=== PATIENT | male | born 2000 | race African-American/Black ===

== ENCOUNTER 2018-11-01 05:00 | Inpatient (IN) | payer OTHER ==
[~2018-11-01] VITALS: Ht 175.3 cm; Wt 117.9 kg
[~2018-11-01 05:00] MED LIST: SULF1TAB24 PO
--- NOTE | 2018-11-01 05:16 | PHYS DOC ---
Past Medical History Past Medical History: No Pertinent History (CHASITY NIEVES DO) Past Surgical History: No Surgical History (CHASITY NIEVES DO) Alcohol Use: Occasionally Drug Use: None (CHASITY NIEVES DO) Adult General Chief Complaint Chief Complaint: ALLERGIC REACTION HPI HPI Patient is a 18 year old male who presents with facial swelling. This started this morning. Patient has taken no home medicines. Patient is unable to identify any triggers to include new foods, fish, or recent shellfish gesturing. No new soaps, lotions, detergents, or skin creams. Patient has been having cough and has been taking [id number] cough medicine along with ibuprofen. He is also been having some hemoptysis, a small amount, over the last 3-4 nights with dried blood noted on the collar of his shirt as well as in his mouth. Patient denies any nosebleed.[] (CHASITY NIEVES DO) Review of Systems Review of Systems Constitutional: Denies fever or chills [] Eyes: Denies change in visual acuity, redness, or eye pain [] HENT: Denies nasal congestion or sore throat [] Respiratory: See history of present illness[] Cardiovascular: No chest pain or palpitations[] GI: Denies abdominal pain, nausea, vomiting, bloody stools or diarrhea [] : Denies dysuria or hematuria [] Musculoskeletal: Denies back pain or joint pain [] Integument: Denies rash or skin lesions [] Neurologic: Denies headache, focal weakness or sensory changes [] Endocrine: Denies polyuria or polydipsia [] All other systems were reviewed and found to be within normal limits, except as documented in this note. (CHASITY NIEVES DO) Current Medications Current Medications Current Medications Medications (Trade) Dose Ordered Sig/Srinivas Start Time Stop Time Status Last Admin Dose Admin Diphenhydramine HCl (Benadryl) 50 mg STK-MED ONCE 11/01/18 05:19 11/01/18 05:20 DC Famotidine (Pepcid Vial) 20 mg STK-MED ONCE 11/01/18 05:19 11/01/18 05:20 DC Methylprednisolone Sodium Succinate (SOLU-Medrol 125MG VIAL) 125 mg STK-MED ONCE 11/01/18 05:19 11/01/18 05:20 DC Sodium Chloride 1,000 ml @ 1,000 mls/hr 1X ONCE 11/01/18 05:30 11/01/18 06:30 DC 11/01/18 05:53 1,000 MLS/HR (NATALIA RILEY MD) Allergies Allergies Allergies Coded Allergies Type Severity Reaction Last Updated Verified No Known Drug Allergies 07/10/14 No (NATALIA RILEY MD) Physical Exam Physical Exam Constitutional: Well developed, well nourished, mild discomfort, non-toxic appearance. [] HENT: Normocephalic, atraumatic, bilateral external ears normal, oropharynx moist, no oral exudates, patient is mallampati, no tongue swelling, nose normal. [] Eyes: PERRLA, EOMI, conjunctiva normal, no discharge. [] Neck: Normal range of motion, no tenderness, supple, no stridor. [] Cardiovascular:Heart rate regular rhythm, no murmur [] Lungs & Thorax: Bilateral breath sounds clear to auscultation [] Abdomen: Bowel sounds normal, soft, no tenderness, no masses, no pulsatile masses. [] Skin: Warm, dry, no erythema, no rash. There is swelling around the face. [] Back: No tenderness, no CVA tenderness. [] Extremities: No tenderness, no cyanosis, no clubbing, ROM intact, no edema. [] Neurologic: Alert and oriented X 3, normal motor function, normal sensory function, no focal deficits noted. [] Psychologic: Affect normal, judgement normal, mood normal. [] (MARIABERG,CHASITY DO) Current Patient Data Vital Signs Vital Signs Date Time Temp Pulse Resp B/P (MAP) Pulse Ox O2 Delivery O2 Flow Rate FiO2 11/01/18 06:35 95 21 125/58 (80) 98 Room Air 11/01/18 05:15 99.4 99.4 (NATALIA RILEY MD) Lab Values Laboratory Tests Test 11/01/18 05:48 11/01/18 06:40 White Blood Count 4.5 x10^3/uL (4.0-11.0) 4.2 x10^3/uL (4.0-11.0) Red Blood Count 6.21 x10^6/uL (4.30-5.70) H 5.86 x10^6/uL (4.30-5.70) H Hemoglobin 16.3 g/dL (13.0-17.5) 15.1 g/dL (13.0-17.5) Hematocrit 48.4 % (39.0-53.0) 45.8 % (39.0-53.0) Mean Corpuscular Volume 78 fL (79-100) L 78 fL (79-100) L Mean Corpuscular Hemoglobin 26 pg (25-35) 26 pg (25-35) Mean Corpuscular Hemoglobin Concent 34 g/dL (31-37) 33 g/dL (31-37) Red Cell Distribution Width 12.9 % (11.5-14.5) 12.9 % (11.5-14.5) Platelet Count 7 x10^3/uL (140-400) *L 5 x10^3/uL (140-400) *L Neutrophils (%) (Auto) 35 % (31-73) 47 % (31-73) Lymphocytes (%) (Auto) 38 % (24-48) 28 % (24-48) Monocytes (%) (Auto) 24 % (0-9) H 22 % (0-9) H Eosinophils (%) (Auto) 3 % (0-3) 2 % (0-3) Basophils (%) (Auto) 0 % (0-3) 0 % (0-3) Neutrophils # (Auto) 1.6 x10^3uL (1.8-7.7) L 2.0 x10^3uL (1.8-7.7) Lymphocytes # (Auto) 1.7 x10^3/uL (1.0-4.8) 1.2 x10^3/uL (1.0-4.8) Monocytes # (Auto) 1.1 x10^3/uL (0.0-1.1) 0.9 x10^3/uL (0.0-1.1) Eosinophils # (Auto) 0.1 x10^3/uL (0.0-0.7) 0.1 x10^3/uL (0.0-0.7) Basophils # (Auto) 0.0 x10^3/uL (0.0-0.2) 0.0 x10^3/uL (0.0-0.2) Segmented Neutrophils % 30 % (35-66) L Band Neutrophils % 4 % (0-9) Lymphocytes % 41 % (24-48) Atypical Lymphocytes % (Manual) 4 % (0-0) H Monocytes % 21 % (0-10) H Nucleated Red Blood Cells 1 Platelet Estimate Decreased (ADEQUATE) Large Platelets Occ Prothrombin Time 16.4 SEC (11.7-14.0) H Prothrombin Time INR 1.4 (0.8-1.1) H Sodium Level 141 mmol/L (136-145) Potassium Level 3.8 mmol/L (3.5-5.1) Chloride Level 100 mmol/L (98-107) Carbon Dioxide Level 27 mmol/L (21-32) Anion Gap 14 (6-14) Blood Urea Nitrogen 7 mg/dL (8-26) L Creatinine 1.1 mg/dL (0.7-1.3) Estimated GFR (Cockcroft-Gault) 103.3 BUN/Creatinine Ratio 6 (6-20) Glucose Level 117 mg/dL (70-99) H Calcium Level 8.6 mg/dL (8.5-10.1) Total Bilirubin 0.6 mg/dL (0.2-1.0) Aspartate Amino Transferase (AST) 18 U/L (15-37) Alanine Aminotransferase (ALT) 27 U/L (16-63) Alkaline Phosphatase 75 U/L (46-116) Total Protein 7.2 g/dL (6.4-8.2) Albumin 3.4 g/dL (3.4-5.0) Albumin/Globulin Ratio 0.9 (1.0-1.7) L Laboratory Tests 11/01/18 05:48 11/01/18 06:40 Laboratory Tests 11/01/18 05:48 (NATALIA RILEY MD) EKG EKG [] [facility] Radiology/Procedures Radiology/Procedures [] ([facility]) Radiology/Procedures ER physician preliminary chest x-ray interpretation: No acute disease. (NATALIA RILEY MD) Course & Med Decision Making Course & Med Decision Making Pertinent Labs and Imaging studies reviewed. (See chart for details) ED course: Patient arrived, was placed in bed, in tolerated exam well. Patient care endorsed to the daytime physician, Dr Riley, at 6 AM with laboratory testing, imaging, and affect of anti-allergy medicine pending.[] (CHASITY NIEVES DO) Course & Med Decision Making 7:40 AM: Patient care was assumed at shift change. Patient presented with facial and upper extremity swelling, in the setting of cold-like symptoms, with some hemoptysis. He states he has not had any danyell hemoptysis, but when he has woken up, he has had some dried blood in his mouth. He denies shortness of breath. He does report a history of easy bruising, and bleeding with brushing his teeth, but this has been going on for quite a while. Platelet count is noted to be very low. Repeat lab, to confirm, shows similar results. I discussed case with the hospitalist will admit the patient for further evaluation and treatment. 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 (CHASITY NIEVES DO) Departure Departure Impression: Primary Impression: Facial swelling Additional Impression: Thrombocytopenia Disposition: ADMITTED INPATIENT Admitting Physician: Dianne Hernandez (NATALIA RILEY MD) Condition: STABLE Referrals: MALU HENSON MD (PCP) Problem Qualifiers CHASITY NIEVES DO Nov 01, 2018 05:16 NATALIA RILEY MD Nov 01, 2018 07:43
[2018-11-01] MEDS ORDERED: FAMOTIDINE 20 MG/2 ML VIAL ONE (05:19)
[2018-11-01] MEDS ORDERED: methylPREDNISolone SOD SUCC PF 125 MG/2 ML VIAL. ONE (05:19)
[2018-11-01] MEDS ORDERED: diphenhydrAMINE 50 MG/ML VIAL ONE (05:19)
[2018-11-01] MEDS ORDERED: methylPREDNISolone SOD SUCC PF 125 MG/2 ML VIAL. IV ONE (05:30)
[2018-11-01] MEDS ORDERED: FAMOTIDINE 20 MG/2 ML VIAL IVP ONE (05:30)
[2018-11-01] MEDS ORDERED: IV NORMAL SALINE 1000ML BAG 1,000 ML IV ONE (05:30)
[2018-11-01] MEDS ORDERED: diphenhydrAMINE 50 MG/ML VIAL IVP ONE (05:30)
[2018-11-01 06:02] LABS: BASO % 0 % (0-3); EOS # 0.1 x10^3/uL (0.0-0.7); EOS % 3 % (0-3); HEMATOCRIT 48.4 % (39.0-53.0); HEMOGLOBIN 16.3 g/dL (13.0-17.5); LYMPH # 1.7 x10^3/uL (1.0-4.8); LYMPH % 38 % (24-48); MEAN CORPUSCULAR HEMOGLOBIN 26 pg (25-35); MEAN CORPUSCULAR HGB CONC 34 g/dL (31-37); MEAN CORPUSCULAR VOLUME 78 fL (79-100); MONO # 1.1 x10^3/uL (0.0-1.1); MONO % 24 % (0-9); NEUT # 1.6 x10^3uL (1.8-7.7); NEUT % 35 % (31-73); RED BLOOD COUNT 6.21 x10^6/uL (4.30-5.70); RED CELL DISTRIBUTION WIDTH 12.9 % (11.5-14.5); WHITE BLOOD COUNT 4.5 x10^3/uL (4.0-11.0)
[2018-11-01 06:12] LABS: CALCIUM 8.6 mg/dL (8.5-10.1); CREATININE 1.1 mg/dL (0.7-1.3); GFR 103.3; POTASSIUM 3.8 mmol/L (3.5-5.1)
[2018-11-01 06:14] LABS: PROTHROMBIN TIME PATIENT 16.4 SEC (11.7-14.0)
[2018-11-01 06:16] LABS: PLATELET COUNT 7 x10^3/uL (140-400)
[2018-11-01 06:17] LABS: ALBUMIN 3.4 g/dL (3.4-5.0); ALBUMIN/GLOBULIN RATIO 0.9 (1.0-1.7); TOTAL BILIRUBIN 0.6 mg/dL (0.2-1.0); TOTAL PROTEIN 7.2 g/dL (6.4-8.2)
[2018-11-01 06:54] LABS: BASO % 0 % (0-3); EOS # 0.1 x10^3/uL (0.0-0.7); EOS % 2 % (0-3); HEMATOCRIT 45.8 % (39.0-53.0); HEMOGLOBIN 15.1 g/dL (13.0-17.5); LYMPH # 1.2 x10^3/uL (1.0-4.8); LYMPH % 28 % (24-48); MEAN CORPUSCULAR HEMOGLOBIN 26 pg (25-35); MEAN CORPUSCULAR HGB CONC 33 g/dL (31-37); MEAN CORPUSCULAR VOLUME 78 fL (79-100); MONO # 0.9 x10^3/uL (0.0-1.1); MONO % 22 % (0-9); NEUT % 47 % (31-73); RED BLOOD COUNT 5.86 x10^6/uL (4.30-5.70); RED CELL DISTRIBUTION WIDTH 12.9 % (11.5-14.5); WHITE BLOOD COUNT 4.2 x10^3/uL (4.0-11.0)
[2018-11-01 06:56] LABS: PLATELET COUNT 5 x10^3/uL (140-400)
[2018-11-01 07:19] LABS: % BANDS 4 % (0-9); % MONOS 21 % (0-10); % SEGS 30 % (35-66); NUCLEATED RBC 1; PLT ESTIMATE DECREASED (ADEQUATE)
[2018-11-01 07:20] LABS: % ATYL 4 % (0-0); % LYMPHS 41 % (24-48)
--- NOTE | 2018-11-01 07:57 | RAD ---
Chest, PA and Lateral: Technique: PA and lateral views of the chest were obtained. History: Cough, hemoptysis. Comparison: None. Findings: The heart and pulmonary vasculature appear within normal limits. The lungs are clear. The pleural margins are clear. Impression: No acute chest process is seen. Electronically signed by: Suresh Ramon MD (11/01/2018 7:54 AM) [facility]
[2018-11-01 08:50] VITALS: BP 120/67
[2018-11-01] MEDS ORDERED: ONDANSETRON PF 4 MG/2 ML VIAL. IV PRN (09:30)
[2018-11-01] MEDS ORDERED: ONDANSETRON ODT 4 MG TAB.RAPDIS. PO PRN (09:30)
[2018-11-01] MEDS ORDERED: ACETAMINOPHEN 500 MG TABLET PO PRN (09:30)
[2018-11-01] MEDS ORDERED: ACETAMINOPHEN/CODEINE 300/30MG TABLET. PO PRN (09:30)
[2018-11-01 11:00] VITALS: BP 124/66
--- NOTE | 2018-11-01 12:03 | PDOC2 ---
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 He has general myalgias and aches. He also stated that he had a recent dental cleaning and bled for about 20minutes after the visit. He has not had any recent blood work, but upon admission to the ED he was found to have a normal wbc and hgb, but plts were low at 7K. Repeat showed 5K. He was admitted to the hospital and given 125mg solumedrol. Currently he denies any bleeding or other symptoms except being very tired. He denies any rash or petechiae. He is not aware of having a low plt count in the past. He denies any smoking, drinking or drug use Past Medical History Cardiovascular: No pertinent hx Pulmonary: No pertinent hx GI: No pertinent hx Heme/Onc: No pertinent hx Hepatobiliary: No pertinent hx Infectious disease: No pertinent hx Past Surgical History Past Surgical History None Family History Family History No history of any autoimmune conditions Social History No ALCOHOL: none Drugs: None Lives: with Family Current Problem List Problem List Problems Medical Problems: (1) Facial swelling Status: Acute (2) Thrombocytopenia Status: Acute Current Medications Current Medications Current Medications Sodium Chloride 1,000 ml @ 1,000 mls/hr 1X ONCE IV Last administered on at 05:53; Start 11/01/18 at 05:30; Stop 11/01/18 at 06:30; Status DC Methylprednisolone Sodium Succinate (SOLU-Medrol 125MG VIAL) 125 mg 1X ONCE IV Last administered on 11/01/18at 05:53; Start 11/01/18 at 05:30; Stop 11/01/18 at 05:31; Status DC Diphenhydramine HCl (Benadryl) 50 mg 1X ONCE IVP Last administered on at 05:53; Start 11/01/18 at 05:30; Stop 11/01/18 at 05:31; Status DC Famotidine (Pepcid Vial) 20 mg 1X ONCE IVP Last administered on 11/01/18at 05: 53; Start 11/01/18 at 05:30; Stop 11/01/18 at 05:31; Status DC Methylprednisolone Sodium Succinate (SOLU-Medrol 125MG VIAL) 125 mg STK-MED ONCE .ROUTE ; Start 11/01/18 at 05:19; Stop 11/01/18 at 05:20; Status DC Diphenhydramine HCl (Benadryl) 50 mg STK-MED ONCE .ROUTE ; Start 11/01/18 at 05: 19; Stop 11/01/18 at 05:20; Status DC Famotidine (Pepcid Vial) 20 mg STK-MED ONCE .ROUTE ; Start 11/01/18 at 05:19; Stop 11/01/18 at 05:20; Status DC Acetaminophen (Tylenol) 500 mg PRN Q6HRS PRN PO MILD PAIN / TEMP; Start at 09:30 Acetaminophen/ Codeine Phosphate (Tylenol #3) 1 tab PRN Q6HRS PRN PO PAIN MODERATE; Start 11/01/18 at 09:30 Ondansetron HCl (Zofran) 4 mg PRN Q6HRS PRN IV NAUSEA/VOMITING; Start 11/01/18 at 09:30 Ondansetron HCl (Zofran Odt) 4 mg PRN Q6HRS PRN PO NAUSEA/VOMITING 1ST CHOICE; Start 11/01/18 at 09:30 Active Scripts Active Bactrim Ds Tablet (Sulfamethoxazole/Trimethoprim) 1 Each Tablet 1 Tab PO BID Allergies Allergies: Coded Allergies: No Known Drug Allergies (Unverified , 07/10/14) ROS General: YES: Fatigue, Malaise, Appetite (decreased) PSYCHOLOGICAL ROS: No: Anxiety, Behavioral Disorder, Concentration difficultie , Decreased libido, Depression, Disorientation, Hallucinations, Hostility, Irritablity, Memory difficulties, Mood Swings, Obsessive thoughts, Physical abuse, Sexual abuse, Sleep disturbances, Suicidal ideation, Other Eyes: No Blurry vision, No Decreased vision, No Double vision, No Dry eyes, No Excessive tearing, No Eye Pain, No Itchy Eyes, No Loss of vision, No Photophobia , No Scotomata, No Uses contacts, No Uses glasses, No Other HEENT: No: Heacaches, Visual Changes, Hearing change, Nasal congestion, Nasal discharge, Oral lesions, Sinus pain, Sore Throat, Epistaxis, Sneezing, Snoring, Tinnitus, Vertigo, Vocal changes, Other ALLERGY AND IMMUNOLOGY: No: Hives, Insect Bite Sensitivity, Itchy/Watery Eyes, Nasal Congestion, Post Nasal Drip, Seasonal Allergies, Other Hematological and Lymphatic: No: Bleeding Problems, Blood Clots, Blood Transfusions, Brusing, Night Sweats, Pallor, Swollen Lymph Nodes, Other ENDOCRINE: No: Breast Changes, Galactorrhea, Hair Pattern Changes, Hot Flashes , Malaise/lethargy, Mood Swings, Palpitations, Polydipsia/polyuria, Skin Changes , Temperature Intolerance, Unexpected Weight Changes, Other Breast: No New/Changing Breast Lumps, No Nipple changes, No Nipple discharge, No Other Respiratory: No: Cough, Hemoptysis, Orthopnea, Pleuritic Pain, Shortness of breath, SOB with excertion, Sputum Changes, Stridor, Tachypnea, Wheezing, Other Cardiovascular: No Chest Pain, No Palpitations, No Orthopnea, No Paroxysmal Noc. Dyspnea, No Edema, No Lt Headedness, No Other Gastrointestinal: No Nausea, No Vomiting, No Abdominal Pain, No Diarrhea, No Constipation, No Melena, No Hematochezia, No Other Genitourinary: No Dysuria, No Frequency, No Incontinence, No Hematuria, No Retention, No Discharge, No Urgency, No Pain, No Flank Pain, No Other, No , No , No , No , No , No , No Musculoskeletal: No Gait Disturbance, No Joint Pain, No Joint Stiffness, No Joint Swelling, No Muscle Pain, No Muscular Weakness, No Pain In:, No Swelling In:, No Other Neurological: No Behavorial Changes, No Bowel/Bladder ControlChng, No Confusion , No Dizziness, No Gait Disturbance, No Headaches, No Impaired Coord/balance, No Memory Loss, No Numbness/Tingling, No Seizures, No Speech Problems, No Tremors, No Visual Changes, No Weakness, No Other Skin: No Dry Skin, No Eczema, No Hair Changes, No Lumps, No Mole Changes, No Mottling, No Nail Changes, No Pruritus, No Rash, No Skin Lesion Changes, No Other, No Acne Physical Exam General: Alert, Oriented X3, Cooperative HEENT: Atraumatic, PERRLA Lungs: Clear to auscultation Heart: Regular rate, Normal S1, Normal S2 Abdomen: Normal bowel sounds, Soft, No tenderness Extremities: No clubbing, No cyanosis Skin: No rashes Neuro: Normal gait Vitals VITALS Vital Signs Date Time Temp Pulse Resp B/P (MAP) Pulse Ox O2 Delivery O2 Flow Rate FiO2 11/01/18 11:00 97.8 54 22 124/66 (85) 96 Room Air 97.8 Labs Labs Laboratory Tests Test 11/01/18 05:48 11/01/18 06:40 White Blood Count 4.5 x10^3/uL (4.0-11.0) 4.2 x10^3/uL (4.0-11.0) Red Blood Count 6.21 x10^6/uL (4.30-5.70) 5.86 x10^6/uL (4.30-5.70) Hemoglobin 16.3 g/dL (13.0-17.5) 15.1 g/dL (13.0-17.5) Hematocrit 48.4 % (39.0-53.0) 45.8 % (39.0-53.0) Mean Corpuscular Volume 78 fL (79-100) 78 fL (79-100) Mean Corpuscular Hemoglobin 26 pg (25-35) 26 pg (25-35) Mean Corpuscular Hemoglobin Concent 34 g/dL (31-37) 33 g/dL (31-37) Red Cell Distribution Width 12.9 % (11.5-14.5) 12.9 % (11.5-14.5) Platelet Count 7 x10^3/uL (140-400) 5 x10^3/uL (140-400) Neutrophils (%) (Auto) 35 % (31-73) 47 % (31-73) Lymphocytes (%) (Auto) 38 % (24-48) 28 % (24-48) Monocytes (%) (Auto) 24 % (0-9) 22 % (0-9) Eosinophils (%) (Auto) 3 % (0-3) 2 % (0-3) Basophils (%) (Auto) 0 % (0-3) 0 % (0-3) Neutrophils # (Auto) 1.6 x10^3uL (1.8-7.7) 2.0 x10^3uL (1.8-7.7) Lymphocytes # (Auto) 1.7 x10^3/uL (1.0-4.8) 1.2 x10^3/uL (1.0-4.8) Monocytes # (Auto) 1.1 x10^3/uL (0.0-1.1) 0.9 x10^3/uL (0.0-1.1) Eosinophils # (Auto) 0.1 x10^3/uL (0.0-0.7) 0.1 x10^3/uL (0.0-0.7) Basophils # (Auto) 0.0 x10^3/uL (0.0-0.2) 0.0 x10^3/uL (0.0-0.2) Segmented Neutrophils % 30 % (35-66) Band Neutrophils % 4 % (0-9) Lymphocytes % 41 % (24-48) Atypical Lymphocytes % (Manual) 4 % (0-0) Monocytes % 21 % (0-10) Nucleated Red Blood Cells 1 Platelet Estimate Decreased (ADEQUATE) Large Platelets Occ Prothrombin Time 16.4 SEC (11.7-14.0) Prothromb Time International Ratio 1.4 (0.8-1.1) Sodium Level 141 mmol/L (136-145) Potassium Level 3.8 mmol/L (3.5-5.1) Chloride Level 100 mmol/L (98-107) Carbon Dioxide Level 27 mmol/L (21-32) Anion Gap 14 (6-14) Blood Urea Nitrogen 7 mg/dL (8-26) Creatinine 1.1 mg/dL (0.7-1.3) Estimated GFR (Cockcroft-Gault) 103.3 BUN/Creatinine Ratio 6 (6-20) Glucose Level 117 mg/dL (70-99) Calcium Level 8.6 mg/dL (8.5-10.1) Total Bilirubin 0.6 mg/dL (0.2-1.0) Aspartate Amino Transf (AST/SGOT) 18 U/L (15-37) Alanine Aminotransferase (ALT/SGPT) 27 U/L (16-63) Alkaline Phosphatase 75 U/L (46-116) Total Protein 7.2 g/dL (6.4-8.2) Albumin 3.4 g/dL (3.4-5.0) Albumin/Globulin Ratio 0.9 (1.0-1.7) Laboratory Tests Test 11/01/18 05:48 11/01/18 06:40 White Blood Count 4.5 x10^3/uL (4.0-11.0) 4.2 x10^3/uL (4.0-11.0) Red Blood Count 6.21 x10^6/uL (4.30-5.70) 5.86 x10^6/uL (4.30-5.70) Hemoglobin 16.3 g/dL (13.0-17.5) 15.1 g/dL (13.0-17.5) Hematocrit 48.4 % (39.0-53.0) 45.8 % (39.0-53.0) Mean Corpuscular Volume 78 fL (79-100) 78 fL (79-100) Mean Corpuscular Hemoglobin 26 pg (25-35) 26 pg (25-35) Mean Corpuscular Hemoglobin Concent 34 g/dL (31-37) 33 g/dL (31-37) Red Cell Distribution Width 12.9 % (11.5-14.5) 12.9 % (11.5-14.5) Platelet Count 7 x10^3/uL (140-400) 5 x10^3/uL (140-400) Neutrophils (%) (Auto) 35 % (31-73) 47 % (31-73) Lymphocytes (%) (Auto) 38 % (24-48) 28 % (24-48) Monocytes (%) (Auto) 24 % (0-9) 22 % (0-9) Eosinophils (%) (Auto) 3 % (0-3) 2 % (0-3) Basophils (%) (Auto) 0 % (0-3) 0 % (0-3) Neutrophils # (Auto) 1.6 x10^3uL (1.8-7.7) 2.0 x10^3uL (1.8-7.7) Lymphocytes # (Auto) 1.7 x10^3/uL (1.0-4.8) 1.2 x10^3/uL (1.0-4.8) Monocytes # (Auto) 1.1 x10^3/uL (0.0-1.1) 0.9 x10^3/uL (0.0-1.1) Eosinophils # (Auto) 0.1 x10^3/uL (0.0-0.7) 0.1 x10^3/uL (0.0-0.7) Basophils # (Auto) 0.0 x10^3/uL (0.0-0.2) 0.0 x10^3/uL (0.0-0.2) Segmented Neutrophils % 30 % (35-66) Band Neutrophils % 4 % (0-9) Lymphocytes % 41 % (24-48) Atypical Lymphocytes % (Manual) 4 % (0-0) Monocytes % 21 % (0-10) Nucleated Red Blood Cells 1 Platelet Estimate Decreased (ADEQUATE) Large Platelets Occ Prothrombin Time 16.4 SEC (11.7-14.0) Prothromb Time International Ratio 1.4 (0.8-1.1) Sodium Level 141 mmol/L (136-145) Potassium Level 3.8 mmol/L (3.5-5.1) Chloride Level 100 mmol/L (98-107) Carbon Dioxide Level 27 mmol/L (21-32) Anion Gap 14 (6-14) Blood Urea Nitrogen 7 mg/dL (8-26) Creatinine 1.1 mg/dL (0.7-1.3) Estimated GFR (Cockcroft-Gault) 103.3 BUN/Creatinine Ratio 6 (6-20) Glucose Level 117 mg/dL (70-99) Calcium Level 8.6 mg/dL (8.5-10.1) Total Bilirubin 0.6 mg/dL (0.2-1.0) Aspartate Amino Transf (AST/SGOT) 18 U/L (15-37) Alanine Aminotransferase (ALT/SGPT) 27 U/L (16-63) Alkaline Phosphatase 75 U/L (46-116) Total Protein 7.2 g/dL (6.4-8.2) Albumin 3.4 g/dL (3.4-5.0) Albumin/Globulin Ratio 0.9 (1.0-1.7) Assessment/Plan Assessment/Plan 1. Thrombocytopenia. Most likely this is ITP as his other counts are normal. This could of been precipitated by a viral illness. I wrote for decadron 40mg IV today and then orally for 3 more days. I would like to see his plt count improving prior to discharge. If no improvement, would consider IVIG. 2. Viral illness. Would cont supportive measures SONNY HOBBS MD Nov 01, 2018 12:03
--- NOTE | 2018-11-01 12:11 | PDOC1 ---
History and Physical Date of Admission Date of Admission DATE: 11/01/18 TIME: 12:06 Identification/Chief Complaint Chief Complaint Facial swelling Source Source: Caregiver, Chart review, Patient History of Present Illness History of Present Illness 18-year-old obese -Armenian male, BMI 38.4, mother gave ibuprofen over- the-counter last Friday and Friday noted some facial swelling, difficulty swallowing but no difficulty breathing. No tongue swelling. Hence went to the emergency room. NO other meds at home But on routine labs platelets was 7000 and on repeat came down to 5000 hence subsequently admitted I did consult heme onc, could be secondary to ibuprofen. Starting Decadron now inpatient and then repeat counts tomorrow Mother aware of plan and is agreeable Ibuprofen will now be listed as adverse reaction Mother claims lower jaw still swollen-hard to appreciate as he is very obese. But tongue is not swollen. No wheezing, no SOA. Patient is able to tolerate regular diet Minor gum bleeds relayed to me when brushing teeth Past Medical History Cardiovascular: No pertinent hx Pulmonary: No pertinent hx GI: No pertinent hx Heme/Onc: No pertinent hx Hepatobiliary: No pertinent hx Infectious disease: No pertinent hx Past Surgical History Past Surgical History: No pertinent history Family History Family History: No Significant Social History Smoke: No ALCOHOL: none Drugs: None Current Problem List Problem List Problems Medical Problems: (1) Facial swelling Status: Acute (2) Thrombocytopenia Status: Acute Current Medications Current Medications Current Medications Sodium Chloride 1,000 ml @ 1,000 mls/hr 1X ONCE IV Last administered on at 05:53; Start 11/01/18 at 05:30; Stop 11/01/18 at 06:30; Status DC Methylprednisolone Sodium Succinate (SOLU-Medrol 125MG VIAL) 125 mg 1X ONCE IV Last administered on 11/01/18at 05:53; Start 11/01/18 at 05:30; Stop 11/01/18 at 05:31; Status DC Diphenhydramine HCl (Benadryl) 50 mg 1X ONCE IVP Last administered on at 05:53; Start 11/01/18 at 05:30; Stop 11/01/18 at 05:31; Status DC Famotidine (Pepcid Vial) 20 mg 1X ONCE IVP Last administered on 11/01/18at 05: 53; Start 11/01/18 at 05:30; Stop 11/01/18 at 05:31; Status DC Methylprednisolone Sodium Succinate (SOLU-Medrol 125MG VIAL) 125 mg STK-MED ONCE .ROUTE ; Start 11/01/18 at 05:19; Stop 11/01/18 at 05:20; Status DC Diphenhydramine HCl (Benadryl) 50 mg STK-MED ONCE .ROUTE ; Start 11/01/18 at 05: 19; Stop 11/01/18 at 05:20; Status DC Famotidine (Pepcid Vial) 20 mg STK-MED ONCE .ROUTE ; Start 11/01/18 at 05:19; Stop 11/01/18 at 05:20; Status DC Acetaminophen (Tylenol) 500 mg PRN Q6HRS PRN PO MILD PAIN / TEMP; Start at 09:30 Acetaminophen/ Codeine Phosphate (Tylenol #3) 1 tab PRN Q6HRS PRN PO PAIN MODERATE; Start 11/01/18 at 09:30 Ondansetron HCl (Zofran) 4 mg PRN Q6HRS PRN IV NAUSEA/VOMITING; Start 11/01/18 at 09:30 Ondansetron HCl (Zofran Odt) 4 mg PRN Q6HRS PRN PO NAUSEA/VOMITING 1ST CHOICE; Start 11/01/18 at 09:30 Dexamethasone Sodium Phosphate (Decadron) 40 mg 1X ONCE IV ; Start 11/01/18 at 12:30; Stop 11/01/18 at 12:31 Dexamethasone (Decadron) 40 mg DAILYWBKFT PO ; Start 11/02/18 at 08:00; Stop at 12:00 Active Scripts Active Bactrim Ds Tablet (Sulfamethoxazole/Trimethoprim) 1 Each Tablet 1 Tab PO BID Allergies Allergies: Coded Allergies: No Known Drug Allergies (Unverified , 07/10/14) ROS Review of System As per history of present illness, the rest of ROS 14 point negative He is asleep from IV Solu-Medrol and IV Benadryl from ER Physical Exam General: No acute distress HEENT: Atraumatic, PERRLA, Other (moderately swollen lower jaw) Lungs: Clear to auscultation, Normal air movement Heart: S1S2, RRR, no thrills, no rubs, no gallops Cardiovascular: S1, S2 Breasts: Normal, Rt breast nml w/o mass, Lt breast nml w/o mass, Nipples normal Abdomen: Normal bowel sounds, Soft, No tenderness, No hepatosplenomegaly, No masses Rectal Exam: not examined PELVIC: Nml ext genitalia Extremities: No clubbing, No cyanosis, No edema, Normal pulses, No tenderness/ swelling Skin: No rashes, No breakdown, No significant lesion Neuro: Normal gait, Normal speech, Strength at 5/5 X4 ext, Normal tone, Sensation intact, Cranial nerves 3-12 NL, Reflexes 2+ Vitals Vitals Vital Signs Date Time Temp Pulse Resp B/P (MAP) Pulse Ox O2 Delivery O2 Flow Rate FiO2 11/01/18 11:00 97.8 54 22 124/66 (85) 96 Room Air 97.8 Labs Labs Laboratory Tests Test 11/01/18 05:48 11/01/18 06:40 White Blood Count 4.5 x10^3/uL (4.0-11.0) 4.2 x10^3/uL (4.0-11.0) Red Blood Count 6.21 x10^6/uL (4.30-5.70) 5.86 x10^6/uL (4.30-5.70) Hemoglobin 16.3 g/dL (13.0-17.5) 15.1 g/dL (13.0-17.5) Hematocrit 48.4 % (39.0-53.0) 45.8 % (39.0-53.0) Mean Corpuscular Volume 78 fL (79-100) 78 fL (79-100) Mean Corpuscular Hemoglobin 26 pg (25-35) 26 pg (25-35) Mean Corpuscular Hemoglobin Concent 34 g/dL (31-37) 33 g/dL (31-37) Red Cell Distribution Width 12.9 % (11.5-14.5) 12.9 % (11.5-14.5) Platelet Count 7 x10^3/uL (140-400) 5 x10^3/uL (140-400) Neutrophils (%) (Auto) 35 % (31-73) 47 % (31-73) Lymphocytes (%) (Auto) 38 % (24-48) 28 % (24-48) Monocytes (%) (Auto) 24 % (0-9) 22 % (0-9) Eosinophils (%) (Auto) 3 % (0-3) 2 % (0-3) Basophils (%) (Auto) 0 % (0-3) 0 % (0-3) Neutrophils # (Auto) 1.6 x10^3uL (1.8-7.7) 2.0 x10^3uL (1.8-7.7) Lymphocytes # (Auto) 1.7 x10^3/uL (1.0-4.8) 1.2 x10^3/uL (1.0-4.8) Monocytes # (Auto) 1.1 x10^3/uL (0.0-1.1) 0.9 x10^3/uL (0.0-1.1) Eosinophils # (Auto) 0.1 x10^3/uL (0.0-0.7) 0.1 x10^3/uL (0.0-0.7) Basophils # (Auto) 0.0 x10^3/uL (0.0-0.2) 0.0 x10^3/uL (0.0-0.2) Segmented Neutrophils % 30 % (35-66) Band Neutrophils % 4 % (0-9) Lymphocytes % 41 % (24-48) Atypical Lymphocytes % (Manual) 4 % (0-0) Monocytes % 21 % (0-10) Nucleated Red Blood Cells 1 Platelet Estimate Decreased (ADEQUATE) Large Platelets Occ Prothrombin Time 16.4 SEC (11.7-14.0) Prothromb Time International Ratio 1.4 (0.8-1.1) Sodium Level 141 mmol/L (136-145) Potassium Level 3.8 mmol/L (3.5-5.1) Chloride Level 100 mmol/L (98-107) Carbon Dioxide Level 27 mmol/L (21-32) Anion Gap 14 (6-14) Blood Urea Nitrogen 7 mg/dL (8-26) Creatinine 1.1 mg/dL (0.7-1.3) Estimated GFR (Cockcroft-Gault) 103.3 BUN/Creatinine Ratio 6 (6-20) Glucose Level 117 mg/dL (70-99) Calcium Level 8.6 mg/dL (8.5-10.1) Total Bilirubin 0.6 mg/dL (0.2-1.0) Aspartate Amino Transf (AST/SGOT) 18 U/L (15-37) Alanine Aminotransferase (ALT/SGPT) 27 U/L (16-63) Alkaline Phosphatase 75 U/L (46-116) Total Protein 7.2 g/dL (6.4-8.2) Albumin 3.4 g/dL (3.4-5.0) Albumin/Globulin Ratio 0.9 (1.0-1.7) Laboratory Tests Test 11/01/18 05:48 11/01/18 06:40 White Blood Count 4.5 x10^3/uL (4.0-11.0) 4.2 x10^3/uL (4.0-11.0) Red Blood Count 6.21 x10^6/uL (4.30-5.70) 5.86 x10^6/uL (4.30-5.70) Hemoglobin 16.3 g/dL (13.0-17.5) 15.1 g/dL (13.0-17.5) Hematocrit 48.4 % (39.0-53.0) 45.8 % (39.0-53.0) Mean Corpuscular Volume 78 fL (79-100) 78 fL (79-100) Mean Corpuscular Hemoglobin 26 pg (25-35) 26 pg (25-35) Mean Corpuscular Hemoglobin Concent 34 g/dL (31-37) 33 g/dL (31-37) Red Cell Distribution Width 12.9 % (11.5-14.5) 12.9 % (11.5-14.5) Platelet Count 7 x10^3/uL (140-400) 5 x10^3/uL (140-400) Neutrophils (%) (Auto) 35 % (31-73) 47 % (31-73) Lymphocytes (%) (Auto) 38 % (24-48) 28 % (24-48) Monocytes (%) (Auto) 24 % (0-9) 22 % (0-9) Eosinophils (%) (Auto) 3 % (0-3) 2 % (0-3) Basophils (%) (Auto) 0 % (0-3) 0 % (0-3) Neutrophils # (Auto) 1.6 x10^3uL (1.8-7.7) 2.0 x10^3uL (1.8-7.7) Lymphocytes # (Auto) 1.7 x10^3/uL (1.0-4.8) 1.2 x10^3/uL (1.0-4.8) Monocytes # (Auto) 1.1 x10^3/uL (0.0-1.1) 0.9 x10^3/uL (0.0-1.1) Eosinophils # (Auto) 0.1 x10^3/uL (0.0-0.7) 0.1 x10^3/uL (0.0-0.7) Basophils # (Auto) 0.0 x10^3/uL (0.0-0.2) 0.0 x10^3/uL (0.0-0.2) Segmented Neutrophils % 30 % (35-66) Band Neutrophils % 4 % (0-9) Lymphocytes % 41 % (24-48) Atypical Lymphocytes % (Manual) 4 % (0-0) Monocytes % 21 % (0-10) Nucleated Red Blood Cells 1 Platelet Estimate Decreased (ADEQUATE) Large Platelets Occ Prothrombin Time 16.4 SEC (11.7-14.0) Prothromb Time International Ratio 1.4 (0.8-1.1) Sodium Level 141 mmol/L (136-145) Potassium Level 3.8 mmol/L (3.5-5.1) Chloride Level 100 mmol/L (98-107) Carbon Dioxide Level 27 mmol/L (21-32) Anion Gap 14 (6-14) Blood Urea Nitrogen 7 mg/dL (8-26) Creatinine 1.1 mg/dL (0.7-1.3) Estimated GFR (Cockcroft-Gault) 103.3 BUN/Creatinine Ratio 6 (6-20) Glucose Level 117 mg/dL (70-99) Calcium Level 8.6 mg/dL (8.5-10.1) Total Bilirubin 0.6 mg/dL (0.2-1.0) Aspartate Amino Transf (AST/SGOT) 18 U/L (15-37) Alanine Aminotransferase (ALT/SGPT) 27 U/L (16-63) Alkaline Phosphatase 75 U/L (46-116) Total Protein 7.2 g/dL (6.4-8.2) Albumin 3.4 g/dL (3.4-5.0) Albumin/Globulin Ratio 0.9 (1.0-1.7) VTE Prophylaxis Ordered VTE Prophylaxis Devices: Contraindicated VTE Pharmacological Prophylaxi: Contraindicated Assessment/Plan Assessment/Plan 1. Thrombocytopenia. Most likely this is ITP as his other counts are normal. 2. Viral illness. cont supportive measures PLAN: IV Decadron ordered by heme onc Other supportive measures for viral illness Repeat platelet counts Discussed with mother Ibuprofen listed as allergy MIKAYLA DUDLEY MD Nov 01, 2018 12:10
[2018-11-01] MEDS ORDERED: DEXAMETHASONE SOD PHOS 20 MG/5 ML VIAL. IV ONE (12:30)
[2018-11-01] MEDS: diphenhydrAMINE 50 MG/ML VIAL IVP SCH ×2 (13:23→21:09)
[2018-11-01 15:00] VITALS: BP 133/71
[2018-11-01 19:00] VITALS: BP 128/75
[2018-11-01 23:00] VITALS: BP 136/56
[2018-11-02 03:00] VITALS: BP 138/72
[2018-11-02 03:54] LABS: BASO % 0 % (0-3); EOS % 0 % (0-3); HEMATOCRIT 49.3 % (39.0-53.0); HEMOGLOBIN 16.1 g/dL (13.0-17.5); LYMPH % 8 % (24-48); MEAN CORPUSCULAR HEMOGLOBIN 26 pg (25-35); MEAN CORPUSCULAR HGB CONC 33 g/dL (31-37); MEAN CORPUSCULAR VOLUME 80 fL (79-100); MONO # 0.7 x10^3/uL (0.0-1.1); MONO % 6 % (0-9); NEUT # 10.4 x10^3uL (1.8-7.7); NEUT % 86 % (31-73); PLATELET COUNT 34 x10^3/uL (140-400); RED CELL DISTRIBUTION WIDTH 13.5 % (11.5-14.5); WHITE BLOOD COUNT 12.1 x10^3/uL (4.0-11.0)
[2018-11-02 04:46] LABS: % BANDS 13 % (0-9); % LYMPHS 9 % (24-48); % MONOS 4 % (0-10); % SEGS 74 % (35-66); PLT ESTIMATE DECREASED (ADEQUATE); TOXIC GRANULATION SLIGHT; TOXIC VACUOLATION SLIGHT
[2018-11-02 07:00] VITALS: BP 139/78
[2018-11-02] MEDS: diphenhydrAMINE 50 MG/ML VIAL IVP SCH ×3 (08:19→18:38)
[2018-11-02] MEDS: DEXAMETHASONE 4 MG TABLET PO SCH (08:20)
--- NOTE | 2018-11-02 09:02 | PDOC ---
SUBJECTIVE Subjective S: Doing better, platelets greater than 30,000 O: Physical exam: Gen.: Well-nourished, resting in bed, watching tv and eating, obese Lungs: Breathing comfortably Psychiatric: Pleasant mood and affect Labs: White count 12.1, hemoglobin 16.1, platelets 34 up from 5000 Assessment and Plan: Rich is a 18-year-old male with viral prodrome and presumed ITP with platelet count of 5000 improved to 34,000 after beginning dexamethasone 40 mg Concern for ITP: Continue dexamethasone 40 mg 4, started 01 november, we'll reevaluate based on platelet response at the time, we'll have him follow-up with us for lab work and M.D. follow-up as well post discharge Viral prodrome: Improving Disposition: Per others Thank you kindly and please do not hesitate to call with questions. OBJECTIVE Vital Signs Vital Signs Date Time Temp Pulse Resp B/P (MAP) Pulse Ox O2 Delivery O2 Flow Rate FiO2 11/02/18 07:00 97.8 82 18 139/78 (98) 96 Room Air 97.8 11/02/18 03:00 97.7 82 18 138/72 (94) 94 Room Air 97.7 11/01/18 23:00 98.5 90 18 136/56 (82) 96 Room Air 98.5 11/01/18 19:55 Room Air 11/01/18 19:00 98.5 90 18 128/75 (92) 96 Room Air 98.5 11/01/18 15:00 97.7 88 18 133/71 (91) 96 Room Air 97.7 11/01/18 11:00 97.8 54 22 124/66 (85) 96 Room Air 97.8 11/01/18 10:30 Room Air I & O Intake and Output 11/02/18 06:59 Intake Total 2500 ml Output Total 2 ml Balance 2498 ml Intake Oral 1500 ml IV Total 1000 ml Output Urine Total 2 ml # Voids 1 COMMENT Lab Laboratory Tests Test 11/02/18 03:10 White Blood Count 12.1 x10^3/uL (4.0-11.0) Red Blood Count 6.20 x10^6/uL (4.30-5.70) Hemoglobin 16.1 g/dL (13.0-17.5) Hematocrit 49.3 % (39.0-53.0) Mean Corpuscular Volume 80 fL (79-100) Mean Corpuscular Hemoglobin 26 pg (25-35) Mean Corpuscular Hemoglobin Concent 33 g/dL (31-37) Red Cell Distribution Width 13.5 % (11.5-14.5) Platelet Count 34 x10^3/uL (140-400) Neutrophils (%) (Auto) 86 % (31-73) Lymphocytes (%) (Auto) 8 % (24-48) Monocytes (%) (Auto) 6 % (0-9) Eosinophils (%) (Auto) 0 % (0-3) Basophils (%) (Auto) 0 % (0-3) Neutrophils # (Auto) 10.4 x10^3uL (1.8-7.7) Lymphocytes # (Auto) 1.0 x10^3/uL (1.0-4.8) Monocytes # (Auto) 0.7 x10^3/uL (0.0-1.1) Eosinophils # (Auto) 0.0 x10^3/uL (0.0-0.7) Basophils # (Auto) 0.0 x10^3/uL (0.0-0.2) Segmented Neutrophils % 74 % (35-66) Band Neutrophils % 13 % (0-9) Lymphocytes % 9 % (24-48) Monocytes % 4 % (0-10) Toxic Granulation Slight Toxic Vacuolation Slight Platelet Estimate Decreased (ADEQUATE) CROW BOUDREAUX MD Nov 02, 2018 09:02
[2018-11-02] MEDS ORDERED: diphenhydrAMINE HCL 25 MG CAPSULE PO PRN (10:45)
[2018-11-02 11:00] VITALS: BP 132/73
--- NOTE | 2018-11-02 11:08 | PDOC ---
PROGRESS NOTES Chief Complaint Chief Complaint Probable ITP Allergy to ibuprofen Thrombocytopenia (~5000) Hx of obesity History of Present Illness History of Present Illness Mr. Haro is a 18 yo male presented with low platelet count and swelling of throat after taking ibuprofen. 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 Patient given IV Decadron. Heme/ Onc following. Patient is resting comfortably in bed today, no new complaints. Discussed case with mother. Possible discharge tomorrow pending labs. Vitals Vitals Vital Signs Date Time Temp Pulse Resp B/P (MAP) Pulse Ox O2 Delivery O2 Flow Rate FiO2 11/02/18 08:10 Room Air 11/02/18 07:00 97.8 82 18 139/78 (98) 96 97.8 Physical Exam General: Alert, Oriented X3, Cooperative, No acute distress Heart: Regular rate, Normal S1, Normal S2, No murmurs Lungs: Clear Abdomen: Normal bowel sounds, Soft, No tenderness, No hepatosplenomegaly, No masses Extremities: No clubbing, No cyanosis, No edema, Normal pulses, No tenderness/ swelling Skin: No rashes, No breakdown, No significant lesion Labs LABS Laboratory Tests Test 11/02/18 03:10 White Blood Count 12.1 x10^3/uL (4.0-11.0) Red Blood Count 6.20 x10^6/uL (4.30-5.70) Hemoglobin 16.1 g/dL (13.0-17.5) Hematocrit 49.3 % (39.0-53.0) Mean Corpuscular Volume 80 fL (79-100) Mean Corpuscular Hemoglobin 26 pg (25-35) Mean Corpuscular Hemoglobin Concent 33 g/dL (31-37) Red Cell Distribution Width 13.5 % (11.5-14.5) Platelet Count 34 x10^3/uL (140-400) Neutrophils (%) (Auto) 86 % (31-73) Lymphocytes (%) (Auto) 8 % (24-48) Monocytes (%) (Auto) 6 % (0-9) Eosinophils (%) (Auto) 0 % (0-3) Basophils (%) (Auto) 0 % (0-3) Neutrophils # (Auto) 10.4 x10^3uL (1.8-7.7) Lymphocytes # (Auto) 1.0 x10^3/uL (1.0-4.8) Monocytes # (Auto) 0.7 x10^3/uL (0.0-1.1) Eosinophils # (Auto) 0.0 x10^3/uL (0.0-0.7) Basophils # (Auto) 0.0 x10^3/uL (0.0-0.2) Segmented Neutrophils % 74 % (35-66) Band Neutrophils % 13 % (0-9) Lymphocytes % 9 % (24-48) Monocytes % 4 % (0-10) Toxic Granulation Slight Toxic Vacuolation Slight Platelet Estimate Decreased (ADEQUATE) Review of Systems Review of Systems Denies pain Denies fever/chills Denies rashes Assessment and Plan Assessmemt and Plan Problems Medical Problems: (1) Facial swelling Status: Acute (2) Thrombocytopenia Status: Acute Assessment: 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 Labs Laboratory Tests Test 11/01/18 05:48 11/01/18 06:40 11/02/18 03:10 White Blood Count 4.5 x10^3/uL (4.0-11.0) 4.2 x10^3/uL (4.0-11.0) 12.1 x10^3/uL (4.0-11.0) Red Blood Count 6.21 x10^6/uL (4.30-5.70) 5.86 x10^6/uL (4.30-5.70) 6.20 x10^6/uL (4.30-5.70) Hemoglobin 16.3 g/dL (13.0-17.5) 15.1 g/dL (13.0-17.5) 16.1 g/dL (13.0-17.5) Hematocrit 48.4 % (39.0-53.0) 45.8 % (39.0-53.0) 49.3 % (39.0-53.0) Mean Corpuscular Volume 78 fL (79-100) 78 fL (79-100) 80 fL (79-100) Mean Corpuscular Hemoglobin 26 pg (25-35) 26 pg (25-35) 26 pg (25-35) Mean Corpuscular Hemoglobin Concent 34 g/dL (31-37) 33 g/dL (31-37) 33 g/dL (31-37) Red Cell Distribution Width 12.9 % (11.5-14.5) 12.9 % (11.5-14.5) 13.5 % (11.5-14.5) Platelet Count 7 x10^3/uL (140-400) 5 x10^3/uL (140-400) 34 x10^3/uL (140-400) Neutrophils (%) (Auto) 35 % (31-73) 47 % (31-73) 86 % (31-73) Lymphocytes (%) (Auto) 38 % (24-48) 28 % (24-48) 8 % (24-48) Monocytes (%) (Auto) 24 % (0-9) 22 % (0-9) 6 % (0-9) Eosinophils (%) (Auto) 3 % (0-3) 2 % (0-3) 0 % (0-3) Basophils (%) (Auto) 0 % (0-3) 0 % (0-3) 0 % (0-3) Neutrophils # (Auto) 1.6 x10^3uL (1.8-7.7) 2.0 x10^3uL (1.8-7.7) 10.4 x10^3uL (1.8-7.7) Lymphocytes # (Auto) 1.7 x10^3/uL (1.0-4.8) 1.2 x10^3/uL (1.0-4.8) 1.0 x10^3/uL (1.0-4.8) Monocytes # (Auto) 1.1 x10^3/uL (0.0-1.1) 0.9 x10^3/uL (0.0-1.1) 0.7 x10^3/uL (0.0-1.1) Eosinophils # (Auto) 0.1 x10^3/uL (0.0-0.7) 0.1 x10^3/uL (0.0-0.7) 0.0 x10^3/uL (0.0-0.7) Basophils # (Auto) 0.0 x10^3/uL (0.0-0.2) 0.0 x10^3/uL (0.0-0.2) 0.0 x10^3/uL (0.0-0.2) Segmented Neutrophils % 30 % (35-66) 74 % (35-66) Band Neutrophils % 4 % (0-9) 13 % (0-9) Lymphocytes % 41 % (24-48) 9 % (24-48) Atypical Lymphocytes % (Manual) 4 % (0-0) Monocytes % 21 % (0-10) 4 % (0-10) Nucleated Red Blood Cells 1 Platelet Estimate Decreased (ADEQUATE) Decreased (ADEQUATE) Large Platelets Occ Prothrombin Time 16.4 SEC (11.7-14.0) Prothromb Time International Ratio 1.4 (0.8-1.1) Sodium Level 141 mmol/L (136-145) Potassium Level 3.8 mmol/L (3.5-5.1) Chloride Level 100 mmol/L (98-107) Carbon Dioxide Level 27 mmol/L (21-32) Anion Gap 14 (6-14) Blood Urea Nitrogen 7 mg/dL (8-26) Creatinine 1.1 mg/dL (0.7-1.3) Estimated GFR (Cockcroft-Gault) 103.3 BUN/Creatinine Ratio 6 (6-20) Glucose Level 117 mg/dL (70-99) Calcium Level 8.6 mg/dL (8.5-10.1) Total Bilirubin 0.6 mg/dL (0.2-1.0) Aspartate Amino Transf (AST/SGOT) 18 U/L (15-37) Alanine Aminotransferase (ALT/SGPT) 27 U/L (16-63) Alkaline Phosphatase 75 U/L (46-116) Total Protein 7.2 g/dL (6.4-8.2) Albumin 3.4 g/dL (3.4-5.0) Albumin/Globulin Ratio 0.9 (1.0-1.7) Toxic Granulation Slight Toxic Vacuolation Slight Laboratory Tests Test 11/02/18 03:10 White Blood Count 12.1 x10^3/uL (4.0-11.0) Red Blood Count 6.20 x10^6/uL (4.30-5.70) Hemoglobin 16.1 g/dL (13.0-17.5) Hematocrit 49.3 % (39.0-53.0) Mean Corpuscular Volume 80 fL (79-100) Mean Corpuscular Hemoglobin 26 pg (25-35) Mean Corpuscular Hemoglobin Concent 33 g/dL (31-37) Red Cell Distribution Width 13.5 % (11.5-14.5) Platelet Count 34 x10^3/uL (140-400) Neutrophils (%) (Auto) 86 % (31-73) Lymphocytes (%) (Auto) 8 % (24-48) Monocytes (%) (Auto) 6 % (0-9) Eosinophils (%) (Auto) 0 % (0-3) Basophils (%) (Auto) 0 % (0-3) Neutrophils # (Auto) 10.4 x10^3uL (1.8-7.7) Lymphocytes # (Auto) 1.0 x10^3/uL (1.0-4.8) Monocytes # (Auto) 0.7 x10^3/uL (0.0-1.1) Eosinophils # (Auto) 0.0 x10^3/uL (0.0-0.7) Basophils # (Auto) 0.0 x10^3/uL (0.0-0.2) Segmented Neutrophils % 74 % (35-66) Band Neutrophils % 13 % (0-9) Lymphocytes % 9 % (24-48) Monocytes % 4 % (0-10) Toxic Granulation Slight Toxic Vacuolation Slight Platelet Estimate Decreased (ADEQUATE) Medications Current Medications Sodium Chloride 1,000 ml @ 1,000 mls/hr 1X ONCE IV Last administered on at 05:53; Start 11/01/18 at 05:30; Stop 11/01/18 at 06:30; Status DC Methylprednisolone Sodium Succinate (SOLU-Medrol 125MG VIAL) 125 mg 1X ONCE IV Last administered on 11/01/18at 05:53; Start 11/01/18 at 05:30; Stop 11/01/18 at 05:31; Status DC Diphenhydramine HCl (Benadryl) 50 mg 1X ONCE IVP Last administered on at 05:53; Start 11/01/18 at 05:30; Stop 11/01/18 at 05:31; Status DC Famotidine (Pepcid Vial) 20 mg 1X ONCE IVP Last administered on 11/01/18at 05: 53; Start 11/01/18 at 05:30; Stop 11/01/18 at 05:31; Status DC Methylprednisolone Sodium Succinate (SOLU-Medrol 125MG VIAL) 125 mg STK-MED ONCE .ROUTE ; Start 11/01/18 at 05:19; Stop 11/01/18 at 05:20; Status DC Diphenhydramine HCl (Benadryl) 50 mg STK-MED ONCE .ROUTE ; Start 11/01/18 at 05: 19; Stop 11/01/18 at 05:20; Status DC Famotidine (Pepcid Vial) 20 mg STK-MED ONCE .ROUTE ; Start 11/01/18 at 05:19; Stop 11/01/18 at 05:20; Status DC Acetaminophen (Tylenol) 500 mg PRN Q6HRS PRN PO MILD PAIN / TEMP; Start at 09:30 Acetaminophen/ Codeine Phosphate (Tylenol #3) 1 tab PRN Q6HRS PRN PO PAIN MODERATE; Start 11/01/18 at 09:30 Ondansetron HCl (Zofran) 4 mg PRN Q6HRS PRN IV NAUSEA/VOMITING; Start 11/01/18 at 09:30 Ondansetron HCl (Zofran Odt) 4 mg PRN Q6HRS PRN PO NAUSEA/VOMITING 1ST CHOICE; Start 11/01/18 at 09:30 Dexamethasone Sodium Phosphate (Decadron) 40 mg 1X ONCE IV Last administered on 11/01/18at 13:19; Start 11/01/18 at 12:30; Stop 11/01/18 at 12:31; Status DC Dexamethasone (Decadron) 40 mg DAILYWBKFT PO Last administered on 11/02/18at 08: 20; Start 11/02/18 at 08:00; Stop 11/04/18 at 12:00 Diphenhydramine HCl (Benadryl) 25 mg TID IVP Last administered on 11/02/18at 08: 19; Start 11/01/18 at 14:00 Influenza Virus Vaccine (Afluria Trivalent Syringe) 0.5 ml ONCE ONCE VAX IM ; Start 11/02/18 at 10:30; Stop 11/02/18 at 10:31; Status DC Diphenhydramine HCl (Benadryl) 50 mg PRN QHS PRN PO INSOMNIA; Start 11/02/18 at 10:45 Active Scripts Active Bactrim Ds Tablet (Sulfamethoxazole/Trimethoprim) 1 Each Tablet 1 Tab PO BID Vitals/I & O Vital Sign - Last 24 Hours 11/01/18 11/01/18 11/01/18 11/01/18 15:00 19:00 19:55 23:00 Temp 97.7 98.5 98.5 97.7 98.5 98.5 Pulse 88 90 90 Resp 18 B/P (MAP) 133/71 (91) 128/75 (92) 136/56 (82) Pulse Ox 96 96 96 O2 Delivery Room Air Room Air Room Air Room Air 11/02/18 11/02/18 11/02/18 03:00 07:00 08:10 Temp 97.7 97.8 97.7 97.8 Pulse 82 82 Resp 18 B/P (MAP) 138/72 (94) 139/78 (98) Pulse Ox 94 96 O2 Delivery Room Air Room Air Room Air Intake and Output 11/01/18 11/01/18 11/02/18 15:00 23:00 07:00 Intake Total 1300 ml 1200 ml Output Total 1 ml 1 ml Balance 1300 ml 1199 ml -1 ml ALBIN DONALDSON III DO Nov 02, 2018 11:08
--- NOTE | 2018-11-02 12:40 | NUR ---
SS following for discharge planning. SS reviewed pt chart. Pt is from home and is currently on room air. No discharge needs noted at this time. SS will continue to follow for pending discharge needs.
[2018-11-02 15:00] VITALS: BP 140/87
[2018-11-02 15:23] LABS: BARBITURATES NEG (NEG); BENZODIAZEPINES NEG (NEG); CANNABINOIDS NEG (NEG); COCAINE NEG (NEG); METHADONE NEG (NEG); OPIATES NEG (NEG); PHENCYCLIDINE NEG (NEG)
[2018-11-02 15:24] LABS: AMPHETAMINE/METHAMPHETAMINE NEG (NEG)
[2018-11-02 19:00] VITALS: BP 141/75
[2018-11-02 23:00] VITALS: BP 137/78
[2018-11-03 03:00] VITALS: BP 148/89
[2018-11-03 06:23] LABS: BASO % 0 % (0-3); EOS % 0 % (0-3); HEMATOCRIT 47.2 % (39.0-53.0); HEMOGLOBIN 15.5 g/dL (13.0-17.5); LYMPH # 1.1 x10^3/uL (1.0-4.8); LYMPH % 8 % (24-48); MEAN CORPUSCULAR HEMOGLOBIN 26 pg (25-35); MEAN CORPUSCULAR HGB CONC 33 g/dL (31-37); MEAN CORPUSCULAR VOLUME 78 fL (79-100); MONO # 1.1 x10^3/uL (0.0-1.1); MONO % 8 % (0-9); NEUT # 11.8 x10^3uL (1.8-7.7); NEUT % 84 % (31-73); PLATELET COUNT 136 x10^3/uL (140-400); RED BLOOD COUNT 6.05 x10^6/uL (4.30-5.70); RED CELL DISTRIBUTION WIDTH 13.2 % (11.5-14.5); WHITE BLOOD COUNT 14.1 x10^3/uL (4.0-11.0)
[2018-11-03 07:00] VITALS: BP 132/79
[2018-11-03 08:29] LABS: ALBUMIN 3.5 g/dL (3.4-5.0); ALBUMIN/GLOBULIN RATIO 0.9 (1.0-1.7); CALCIUM 9.1 mg/dL (8.5-10.1); CREATININE 0.8 mg/dL (0.7-1.3); GFR 149.1; POTASSIUM 4.4 mmol/L (3.5-5.1); TOTAL BILIRUBIN 0.3 mg/dL (0.2-1.0); TOTAL PROTEIN 7.6 g/dL (6.4-8.2)
--- NOTE | 2018-11-03 08:38 | PDOC ---
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 OBJECTIVE Vital Signs Vital Signs Date Time Temp Pulse Resp B/P (MAP) Pulse Ox O2 Delivery O2 Flow Rate FiO2 11/03/18 03:00 97.8 74 18 148/89 (108) 96 Room Air 97.8 11/02/18 23:00 97.6 73 18 137/78 (97) 97 Room Air 97.6 11/02/18 20:00 Room Air 11/02/18 19:00 98.0 78 18 141/75 (97) 94 Room Air 98.0 11/02/18 15:00 97.8 84 18 140/87 (104) 97 Room Air 97.8 11/02/18 11:00 98.1 64 18 132/73 (92) 98 Room Air 98.1 I & O Intake and Output 11/03/18 06:59 Intake Total 610 ml Output Total 1 ml Balance 609 ml Intake Oral 610 ml Output Urine Total 1 ml # Voids 1 # Bowel Movements 1 COMMENT Lab Laboratory Tests Test 11/02/18 14:30 11/03/18 06:10 Urine Opiates Screen Neg (NEG) Urine Methadone Screen Neg (NEG) Urine Barbiturates Neg (NEG) Urine Phencyclidine Screen Neg (NEG) Urine Amphetamine/Methamphetamine Neg (NEG) Urine Benzodiazepines Screen Neg (NEG) Urine Cocaine Screen Neg (NEG) Urine Cannabinoids Screen Neg (NEG) Urine Ethyl Alcohol Neg (NEG) White Blood Count 14.1 x10^3/uL (4.0-11.0) Red Blood Count 6.05 x10^6/uL (4.30-5.70) Hemoglobin 15.5 g/dL (13.0-17.5) Hematocrit 47.2 % (39.0-53.0) Mean Corpuscular Volume 78 fL (79-100) Mean Corpuscular Hemoglobin 26 pg (25-35) Mean Corpuscular Hemoglobin Concent 33 g/dL (31-37) Red Cell Distribution Width 13.2 % (11.5-14.5) Platelet Count 136 x10^3/uL (140-400) Neutrophils (%) (Auto) 84 % (31-73) Lymphocytes (%) (Auto) 8 % (24-48) Monocytes (%) (Auto) 8 % (0-9) Eosinophils (%) (Auto) 0 % (0-3) Basophils (%) (Auto) 0 % (0-3) Neutrophils # (Auto) 11.8 x10^3uL (1.8-7.7) Lymphocytes # (Auto) 1.1 x10^3/uL (1.0-4.8) Monocytes # (Auto) 1.1 x10^3/uL (0.0-1.1) Eosinophils # (Auto) 0.0 x10^3/uL (0.0-0.7) Basophils # (Auto) 0.0 x10^3/uL (0.0-0.2) Sodium Level 139 mmol/L (136-145) Potassium Level 4.4 mmol/L (3.5-5.1) Chloride Level 101 mmol/L (98-107) Carbon Dioxide Level 28 mmol/L (21-32) Anion Gap 10 (6-14) Blood Urea Nitrogen 15 mg/dL (8-26) Creatinine 0.8 mg/dL (0.7-1.3) Estimated GFR (Cockcroft-Gault) 149.1 BUN/Creatinine Ratio 19 (6-20) Glucose Level 225 mg/dL (70-99) Calcium Level 9.1 mg/dL (8.5-10.1) Total Bilirubin 0.3 mg/dL (0.2-1.0) Aspartate Amino Transf (AST/SGOT) 16 U/L (15-37) Alanine Aminotransferase (ALT/SGPT) 24 U/L (16-63) Alkaline Phosphatase 88 U/L (46-116) Total Protein 7.6 g/dL (6.4-8.2) Albumin 3.5 g/dL (3.4-5.0) Albumin/Globulin Ratio 0.9 (1.0-1.7) CROW BOUDREAUX MD Nov 03, 2018 08:38
[2018-11-03] MEDS: diphenhydrAMINE 50 MG/ML VIAL IVP SCH (09:00)
--- NOTE | 2018-11-03 10:01 | PDOC ---
PROGRESS NOTES Chief Complaint Chief Complaint Probable ITP Allergy to ibuprofen Thrombocytopenia (~5000) Cough Hx of obesity History of Present Illness History of Present Illness Mr. Haro is a 18 yo male presented with low platelet count and swelling of throat after taking ibuprofen. 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 Patient given IV Decadron. Heme/ Onc following. Pt was seen and examined with mother at bedside Discussed D/C today at length Discussed with RN Pt was resting in bed with NAD and no new complaints Platelet count significantly increased today, family happy with D/C later today Vitals Vitals Vital Signs Date Time Temp Pulse Resp B/P (MAP) Pulse Ox O2 Delivery O2 Flow Rate FiO2 11/03/18 07:00 97.7 61 18 132/79 (96) 98 Room Air 97.7 Physical Exam General: Alert, Oriented X3, Cooperative, No acute distress Heart: Regular rate, Normal S1, Normal S2, No murmurs Lungs: Clear Abdomen: Normal bowel sounds, Soft, No tenderness, No hepatosplenomegaly, No masses Extremities: No clubbing, No cyanosis, No edema, Normal pulses, No tenderness/ swelling Skin: No rashes, No breakdown, No significant lesion Labs LABS Laboratory Tests Test 11/02/18 14:30 11/03/18 06:10 Urine Opiates Screen Neg (NEG) Urine Methadone Screen Neg (NEG) Urine Barbiturates Neg (NEG) Urine Phencyclidine Screen Neg (NEG) Urine Amphetamine/Methamphetamine Neg (NEG) Urine Benzodiazepines Screen Neg (NEG) Urine Cocaine Screen Neg (NEG) Urine Cannabinoids Screen Neg (NEG) Urine Ethyl Alcohol Neg (NEG) White Blood Count 14.1 x10^3/uL (4.0-11.0) Red Blood Count 6.05 x10^6/uL (4.30-5.70) Hemoglobin 15.5 g/dL (13.0-17.5) Hematocrit 47.2 % (39.0-53.0) Mean Corpuscular Volume 78 fL (79-100) Mean Corpuscular Hemoglobin 26 pg (25-35) Mean Corpuscular Hemoglobin Concent 33 g/dL (31-37) Red Cell Distribution Width 13.2 % (11.5-14.5) Platelet Count 136 x10^3/uL (140-400) Neutrophils (%) (Auto) 84 % (31-73) Lymphocytes (%) (Auto) 8 % (24-48) Monocytes (%) (Auto) 8 % (0-9) Eosinophils (%) (Auto) 0 % (0-3) Basophils (%) (Auto) 0 % (0-3) Neutrophils # (Auto) 11.8 x10^3uL (1.8-7.7) Lymphocytes # (Auto) 1.1 x10^3/uL (1.0-4.8) Monocytes # (Auto) 1.1 x10^3/uL (0.0-1.1) Eosinophils # (Auto) 0.0 x10^3/uL (0.0-0.7) Basophils # (Auto) 0.0 x10^3/uL (0.0-0.2) Sodium Level 139 mmol/L (136-145) Potassium Level 4.4 mmol/L (3.5-5.1) Chloride Level 101 mmol/L (98-107) Carbon Dioxide Level 28 mmol/L (21-32) Anion Gap 10 (6-14) Blood Urea Nitrogen 15 mg/dL (8-26) Creatinine 0.8 mg/dL (0.7-1.3) Estimated GFR (Cockcroft-Gault) 149.1 BUN/Creatinine Ratio 19 (6-20) Glucose Level 225 mg/dL (70-99) Calcium Level 9.1 mg/dL (8.5-10.1) Total Bilirubin 0.3 mg/dL (0.2-1.0) Aspartate Amino Transf (AST/SGOT) 16 U/L (15-37) Alanine Aminotransferase (ALT/SGPT) 24 U/L (16-63) Alkaline Phosphatase 88 U/L (46-116) Total Protein 7.6 g/dL (6.4-8.2) Albumin 3.5 g/dL (3.4-5.0) Albumin/Globulin Ratio 0.9 (1.0-1.7) Review of Systems Review of Systems Reports cough Pt denies CP, SOB, LEAL, n/v/d Assessment and Plan Assessmemt and Plan Problems Medical Problems: (1) Facial swelling Status: Acute (2) Thrombocytopenia Status: Acute Plan Probable ITP Allergy to ibuprofen Thrombocytopenia (~5000) Cough Hx of obesity Plan Pt will be discharged today Wrote Rx for prednisone and weekly/biweekly outpt CBC to monitor platelet count Cough- will send with Rx for azithromycin F/u closely with outpt providers home meds today Comment Review of Relevant I have reviewed the following items kiarra (where applicable) has been applied. Labs Laboratory Tests Test 11/02/18 03:10 11/02/18 14:30 11/03/18 06:10 White Blood Count 12.1 x10^3/uL (4.0-11.0) 14.1 x10^3/uL (4.0-11.0) Red Blood Count 6.20 x10^6/uL (4.30-5.70) 6.05 x10^6/uL (4.30-5.70) Hemoglobin 16.1 g/dL (13.0-17.5) 15.5 g/dL (13.0-17.5) Hematocrit 49.3 % (39.0-53.0) 47.2 % (39.0-53.0) Mean Corpuscular Volume 80 fL (79-100) 78 fL (79-100) Mean Corpuscular Hemoglobin 26 pg (25-35) 26 pg (25-35) Mean Corpuscular Hemoglobin Concent 33 g/dL (31-37) 33 g/dL (31-37) Red Cell Distribution Width 13.5 % (11.5-14.5) 13.2 % (11.5-14.5) Platelet Count 34 x10^3/uL (140-400) 136 x10^3/uL (140-400) Neutrophils (%) (Auto) 86 % (31-73) 84 % (31-73) Lymphocytes (%) (Auto) 8 % (24-48) 8 % (24-48) Monocytes (%) (Auto) 6 % (0-9) 8 % (0-9) Eosinophils (%) (Auto) 0 % (0-3) 0 % (0-3) Basophils (%) (Auto) 0 % (0-3) 0 % (0-3) Neutrophils # (Auto) 10.4 x10^3uL (1.8-7.7) 11.8 x10^3uL (1.8-7.7) Lymphocytes # (Auto) 1.0 x10^3/uL (1.0-4.8) 1.1 x10^3/uL (1.0-4.8) Monocytes # (Auto) 0.7 x10^3/uL (0.0-1.1) 1.1 x10^3/uL (0.0-1.1) Eosinophils # (Auto) 0.0 x10^3/uL (0.0-0.7) 0.0 x10^3/uL (0.0-0.7) Basophils # (Auto) 0.0 x10^3/uL (0.0-0.2) 0.0 x10^3/uL (0.0-0.2) Segmented Neutrophils % 74 % (35-66) Band Neutrophils % 13 % (0-9) Lymphocytes % 9 % (24-48) Monocytes % 4 % (0-10) Toxic Granulation Slight Toxic Vacuolation Slight Platelet Estimate Decreased (ADEQUATE) Urine Opiates Screen Neg (NEG) Urine Methadone Screen Neg (NEG) Urine Barbiturates Neg (NEG) Urine Phencyclidine Screen Neg (NEG) Urine Amphetamine/Methamphetamine Neg (NEG) Urine Benzodiazepines Screen Neg (NEG) Urine Cocaine Screen Neg (NEG) Urine Cannabinoids Screen Neg (NEG) Urine Ethyl Alcohol Neg (NEG) Sodium Level 139 mmol/L (136-145) Potassium Level 4.4 mmol/L (3.5-5.1) Chloride Level 101 mmol/L (98-107) Carbon Dioxide Level 28 mmol/L (21-32) Anion Gap 10 (6-14) Blood Urea Nitrogen 15 mg/dL (8-26) Creatinine 0.8 mg/dL (0.7-1.3) Estimated GFR (Cockcroft-Gault) 149.1 BUN/Creatinine Ratio 19 (6-20) Glucose Level 225 mg/dL (70-99) Calcium Level 9.1 mg/dL (8.5-10.1) Total Bilirubin 0.3 mg/dL (0.2-1.0) Aspartate Amino Transf (AST/SGOT) 16 U/L (15-37) Alanine Aminotransferase (ALT/SGPT) 24 U/L (16-63) Alkaline Phosphatase 88 U/L (46-116) Total Protein 7.6 g/dL (6.4-8.2) Albumin 3.5 g/dL (3.4-5.0) Albumin/Globulin Ratio 0.9 (1.0-1.7) Laboratory Tests Test 11/02/18 14:30 11/03/18 06:10 Urine Opiates Screen Neg (NEG) Urine Methadone Screen Neg (NEG) Urine Barbiturates Neg (NEG) Urine Phencyclidine Screen Neg (NEG) Urine Amphetamine/Methamphetamine Neg (NEG) Urine Benzodiazepines Screen Neg (NEG) Urine Cocaine Screen Neg (NEG) Urine Cannabinoids Screen Neg (NEG) Urine Ethyl Alcohol Neg (NEG) White Blood Count 14.1 x10^3/uL (4.0-11.0) Red Blood Count 6.05 x10^6/uL (4.30-5.70) Hemoglobin 15.5 g/dL (13.0-17.5) Hematocrit 47.2 % (39.0-53.0) Mean Corpuscular Volume 78 fL (79-100) Mean Corpuscular Hemoglobin 26 pg (25-35) Mean Corpuscular Hemoglobin Concent 33 g/dL (31-37) Red Cell Distribution Width 13.2 % (11.5-14.5) Platelet Count 136 x10^3/uL (140-400) Neutrophils (%) (Auto) 84 % (31-73) Lymphocytes (%) (Auto) 8 % (24-48) Monocytes (%) (Auto) 8 % (0-9) Eosinophils (%) (Auto) 0 % (0-3) Basophils (%) (Auto) 0 % (0-3) Neutrophils # (Auto) 11.8 x10^3uL (1.8-7.7) Lymphocytes # (Auto) 1.1 x10^3/uL (1.0-4.8) Monocytes # (Auto) 1.1 x10^3/uL (0.0-1.1) Eosinophils # (Auto) 0.0 x10^3/uL (0.0-0.7) Basophils # (Auto) 0.0 x10^3/uL (0.0-0.2) Sodium Level 139 mmol/L (136-145) Potassium Level 4.4 mmol/L (3.5-5.1) Chloride Level 101 mmol/L (98-107) Carbon Dioxide Level 28 mmol/L (21-32) Anion Gap 10 (6-14) Blood Urea Nitrogen 15 mg/dL (8-26) Creatinine 0.8 mg/dL (0.7-1.3) Estimated GFR (Cockcroft-Gault) 149.1 BUN/Creatinine Ratio 19 (6-20) Glucose Level 225 mg/dL (70-99) Calcium Level 9.1 mg/dL (8.5-10.1) Total Bilirubin 0.3 mg/dL (0.2-1.0) Aspartate Amino Transf (AST/SGOT) 16 U/L (15-37) Alanine Aminotransferase (ALT/SGPT) 24 U/L (16-63) Alkaline Phosphatase 88 U/L (46-116) Total Protein 7.6 g/dL (6.4-8.2) Albumin 3.5 g/dL (3.4-5.0) Albumin/Globulin Ratio 0.9 (1.0-1.7) Medications Current Medications Sodium Chloride 1,000 ml @ 1,000 mls/hr 1X ONCE IV Last administered on at 05:53; Start 11/01/18 at 05:30; Stop 11/01/18 at 06:30; Status DC Methylprednisolone Sodium Succinate (SOLU-Medrol 125MG VIAL) 125 mg 1X ONCE IV Last administered on 11/01/18at 05:53; Start 11/01/18 at 05:30; Stop 11/01/18 at 05:31; Status DC Diphenhydramine HCl (Benadryl) 50 mg 1X ONCE IVP Last administered on at 05:53; Start 11/01/18 at 05:30; Stop 11/01/18 at 05:31; Status DC Famotidine (Pepcid Vial) 20 mg 1X ONCE IVP Last administered on 11/01/18at 05: 53; Start 11/01/18 at 05:30; Stop 11/01/18 at 05:31; Status DC Methylprednisolone Sodium Succinate (SOLU-Medrol 125MG VIAL) 125 mg STK-MED ONCE .ROUTE ; Start 11/01/18 at 05:19; Stop 11/01/18 at 05:20; Status DC Diphenhydramine HCl (Benadryl) 50 mg STK-MED ONCE .ROUTE ; Start 11/01/18 at 05: 19; Stop 11/01/18 at 05:20; Status DC Famotidine (Pepcid Vial) 20 mg STK-MED ONCE .ROUTE ; Start 11/01/18 at 05:19; Stop 11/01/18 at 05:20; Status DC Acetaminophen (Tylenol) 500 mg PRN Q6HRS PRN PO MILD PAIN / TEMP; Start at 09:30 Acetaminophen/ Codeine Phosphate (Tylenol #3) 1 tab PRN Q6HRS PRN PO PAIN MODERATE; Start 11/01/18 at 09:30 Ondansetron HCl (Zofran) 4 mg PRN Q6HRS PRN IV NAUSEA/VOMITING; Start 11/01/18 at 09:30 Ondansetron HCl (Zofran Odt) 4 mg PRN Q6HRS PRN PO NAUSEA/VOMITING 1ST CHOICE; Start 11/01/18 at 09:30 Dexamethasone Sodium Phosphate (Decadron) 40 mg 1X ONCE IV Last administered on 11/01/18at 13:19; Start 11/01/18 at 12:30; Stop 11/01/18 at 12:31; Status DC Dexamethasone (Decadron) 40 mg [id number] PO Last administered on 11/02/18at 08: 20; Start 11/02/18 at 08:00; Stop 11/04/18 at 12:00 Diphenhydramine HCl (Benadryl) 25 mg TID IVP Last administered on 11/02/18at 18: 38; Start 11/01/18 at 14:00 Influenza Virus Vaccine (Afluria Trivalent [id number] Syringe) 0.5 ml ONCE ONCE VAX IM Last administered on 11/02/18at 20:06; Start 11/02/18 at 10:30; Stop at 10:31; Status DC Diphenhydramine HCl (Benadryl) 50 mg PRN QHS PRN PO INSOMNIA Last administered on 11/03/18at 01:18; Start 11/02/18 at 10:45 Active Scripts Active No Active Prescriptions or Reported Medications Vitals/I & O Vital Sign - Last 24 Hours 11/02/18 11/02/18 11/02/18 11/02/18 11:00 15:00 19:00 20:00 Temp 98.1 97.8 98.0 98.1 97.8 98.0 Pulse 64 84 78 Resp 18 18 18 B/P (MAP) 132/73 (92) 140/87 (104) 141/75 (97) Pulse Ox 98 97 94 O2 Delivery Room Air Room Air Room Air Room Air 11/02/18 11/03/18 11/03/18 23:00 03:00 07:00 Temp 97.6 97.8 97.7 97.6 97.8 97.7 Pulse 73 74 61 Resp 18 18 18 B/P (MAP) 137/78 (97) 148/89 (108) 132/79 (96) Pulse Ox 97 96 98 O2 Delivery Room Air Room Air Room Air Intake and Output 11/02/18 11/02/18 11/03/18 14:59 22:59 06:59 Intake Total 210 ml 400 ml Output Total 1 ml Balance 209 ml 400 ml ALBIN DONALDSON III DO Nov 03, 2018 10:01
--- NOTE | 2018-11-03 11:11 | NUR ---
SW following. Discussed with RN, pt is discharging home today with parents and self care. No SW needs.
[2018-11-03] MEDS: DEXAMETHASONE 4 MG TABLET PO SCH (11:23)
--- NOTE | 2018-11-03 12:20 | NUR ---
Pt was discharged to home at 1130 today in stable condition with all personal belongings after reviewing all pertinent information including education, medications, follow up and at home care. Pt was escorted by staff and his mom to the main exit where his mom drove him home.
--- NOTE | 2018-11-03 14:59 | DS ---
DATE OF DISCHARGE: 11/03/2018 ADMISSION DIAGNOSES: Facial edema and low platelets. DISCHARGE DIAGNOSIS: Idiopathic thrombocytopenic purpura. CONSULTS: Neli Garcia MD PROCEDURES: None. HOSPITAL COURSE: The patient is a pleasant 18-year-old male presented with facial edema and thrombocytopenia. Basically, we admitted the patient and tracked his platelet counts. We gave him steroids. He has ITP. His platelet count is up to 130,000 today, he looks great clinically. I saw him and examined him. His heart tones were normal. His lungs were clear. We plan to discharge with close outpatient followup. DISPOSITION: Home. ACTIVITY: As tolerated. DIET: Low sodium. MEDICATIONS: Please see the MRAD. TOTAL TIME: 33 minutes. ALBIN DONALDSON DO DR: SUZIE/esthela JOB#: [id number] / [id number]
== END 2018-11-03 11:30 | disposition home or self-care (01) | DRG 813 ==
LOC: ER 05:00 → 4 NORTH 07:50
PROVIDERS: ADMIT Internal Medicine; ATTEND Internal Medicine
DX: D69.3 Immune thrombocytopenic purpura (principal); B34.9 Viral infection, unspecified; E66.9 Obesity, unspecified; Z79.899 Other long term (current) drug therapy; Z88.8 Allergy status to other drugs, medicaments and biological substances; Z88.6 Allergy status to analgesic agent
CPT/HCPCS: 36415; 71046; 80053; 80307; 85007; 85025; 85610; 90471; 90756; 96361; 96374; 96375; J1100; J1200; J2930; J3490; J7030; J8540; Q0163; 99285-25; Q2035